=== PATIENT | female | born 1940 | race Two or more races ===

== ENCOUNTER 2023-03-12 06:42 | Day surgery (SDC) | payer BC ==
[2023-03-12] VITALS (12 sets, daily range): BP systolic 120–159; BP diastolic 55–88; PULSE 60–72; RESP 11–20; TEMP 97.8; O2SAT 95–98
[~2023-03-12] VITALS: Ht 170.2 cm; Wt 70.3 kg
[~2023-03-12 06:42] MED LIST: ALEN70TA21 PO; ASCO500T11 PO; ASPI-543 PO; ATOR40TA52 PO; CALCTAB62 OR; CHOL400D2 PO; CRAN500T6 PO; CYAN100042 PO; DISO100C4 PO; ISOS60TA24 PO; LATA0.008 EACHEYE; LISI10TA34 PO; METF-370 PO; OMEP20TA PO; PRE1T PO; TIMO0.5S66 EACHEYE
[2023-03-12] MEDS ORDERED: LIDOCAINE 2%HCL (LOCAL ANESTH.) INJ 20ML MDV ONE (07:43)
[2023-03-12] MEDS ORDERED: IOHEXOL 350 MG/ML 100ML IJ ONE (07:43)
[2023-03-12] MEDS ORDERED: IODIXANOL 320MG/ML 100ML BTL IV ONE ×2 (07:43→08:29)
[2023-03-12] MEDS ORDERED: VERAPAMIL 2.5MG/ML INJ 2ML VIAL IV ONE (07:48)
[2023-03-12] MEDS ORDERED: HEPARIN SODIUM (PORCINE) 5000 UNITS/ML 1ML VIAL ONE (07:48)
[2023-03-12] MEDS ORDERED: ANGIOMAX 250 MG VIAL IV ONE (07:48)
[2023-03-12] MEDS ORDERED: fentaNYL CITRATE 100 MCG/2 ML VL ONE (07:48)
[2023-03-12] MEDS ORDERED: SODIUM CHL 0.9% 50 ML ONE (07:49)
[2023-03-12] MEDS ORDERED: MIDAZOLAM HCL 2MG/2ML 2ml VIAL (1mg/ml) ONE (07:49)
[2023-03-12] MEDS ORDERED: ASPirin 325 MG TAB ONE (08:40)
[2023-03-12] MEDS ORDERED: TICAGRELOR 90 MG TAB ONE (08:40)
[2023-03-12] MEDS ORDERED: SODIUM CHLORIDE 0.9% 600 ML IV ONE (09:45)
== END 2023-03-12 12:57 | disposition home or self-care (01) ==
LOC: CATH 06:42
PROVIDERS: ATTEND Internal Medicine Cardiovascular Disease
DX: I25.10 Atherosclerotic heart disease of native coronary artery without angina pectoris (principal); I42.1 Obstructive hypertrophic cardiomyopathy; I10 Essential (primary) hypertension; R07.9 Chest pain, unspecified; E78.5 Hyperlipidemia, unspecified; J44.9 Chronic obstructive pulmonary disease, unspecified; E11.9 Type 2 diabetes mellitus without complications; Z79.899 Other long term (current) drug therapy; Z79.84 Long term (current) use of oral hypoglycemic drugs
CPT/HCPCS: 93458; C1725; C1769; C1874; C1887; C1894; C9600; J0583; J1644; J2250; J3010; Q9967; 99152

== ENCOUNTER 2023-09-09 21:56 | Inpatient (IN) | payer BC ==
[~2023-09-09] VITALS: Ht 172.7 cm; Wt 80.0 kg
[2023-09-09] MEDS: ASPirin 325 MG TAB PO ONE (22:54)
[2023-09-09 23:00] VITALS: PULSE 137; RESP 19; O2SAT 93
[2023-09-09 23:02] LABS: Basophils # (auto) 0.1 10 ^3/uL (0-0.2); Basophils % (auto) 0.9 % (0.0-2.0); Eosinophils # (auto) 0.1 10 ^3/uL (0-0.8); Eosinophils % (auto) 0.9 % (0.0-7.0); Hematocrit 38.2 % (36.0-46.0); Hemoglobin 12.3 g/dL (12.2-16.2); Lymphocytes # (auto) 2.1 10 ^3/uL (0.4-5.4); Lymphocytes % (auto) 18.5 % (10.0-50.0); Mean Corpuscular Hemoglobin 28.1 pg (28.0-32.0); Mean Corpuscular Hgb Conc. 32.1 g/dL (32.0-36.0); Mean Corpuscular Volume 87.5 fL (80.0-100.0); Monocytes # (auto) 0.8 10 ^3/uL (0-1.3); Monocytes % (auto) 7.3 % (0.0-12.0); Neutrophils # (auto) 8.4 10 ^3/uL (1.6-8.6); Neutrophils % (auto) 72.4 % (37.0-80.0); Nucleated Red Blood Cells % 0.1 %; Red Blood Cells 4.37 10^6/uL (4.0-5.20); Red Cell Distribution Width 15.3 % (11.8-14.3); White Blood Cell 11.6 10^3/uL (4.4-10.8)
[2023-09-09] MEDS: dilTIAZem 25 MG/5 ML VIAL IV ONE (23:02)
[2023-09-09 23:12] LABS: Chloride 107 mmol/L (98-107); Potassium 3.7 mmol/L (3.5-5.1); Sodium 140 mmol/L (136-145)
[2023-09-09 23:13] LABS: Anion Gap 7 (5-15); Calcium 10.5 mg/dL (8.7-10.4); Carbon Dioxide 26 mmol/L (20-30)
[2023-09-09 23:18] LABS: BUN/Creatinine Ratio 15.7 (10.0-20.0); Blood Urea Nitrogen 19 mg/dL (9-23); Glucose 124 mg/dL (74-106)
[2023-09-10] MEDS ORDERED: NITROGLYCERIN 0.4 MG SL TAB SL PRN
[2023-09-10] MEDS ORDERED: MELATONIN 5 MG TAB PO PRN
[2023-09-10] MEDS ORDERED: hydrALAZINE HCL 10 MG TAB PO PRN
[2023-09-10] MEDS ORDERED: ACETAMINOPHEN 325 MG TAB PO PRN
[2023-09-10] MEDS ORDERED: ONDANSETRON HCL 4 MG/2 ML VIAL IV PRN
[2023-09-10] MEDS ORDERED: MORPHINE SULFATE INJ 2 MG/ml SYRG IV PRN
[2023-09-10] MEDS: SODIUM CHLORIDE 0.9% 250 ML IV ONE (00:12)
[2023-09-10] MEDS: ENOXAPARIN SOD 100 MG/1 ML SYRINGE SC ONE (00:12)
[2023-09-10] MEDS: HYDROcodone-ACET 5/325MG TAB PO PRN (02:43)
[2023-09-10 04:35] LABS: Chloride 110 mmol/L (98-107); Potassium 3.8 mmol/L (3.5-5.1); Sodium 142 mmol/L (136-145)
[2023-09-10 04:36] LABS: Anion Gap 7 (5-15); Calcium 9.3 mg/dL (8.5-10.1); Carbon Dioxide 25 mmol/L (20-30)
[2023-09-10 04:41] LABS: Blood Urea Nitrogen 14 mg/dL (9-23); Glucose 103 mg/dL (74-106)
[2023-09-10] MEDS: HEPARIN DRIP/D5W 100UNITS/ML 250 ML IV SCH ×2 (05:45→18:05)
[2023-09-10 06:45] LABS: Basophils # (auto) 0.1 10 ^3/uL (0-0.2); Eosinophils # (auto) 0.1 10 ^3/uL (0-0.8); Eosinophils % (auto) 1.1 % (0.0-7.0); Hematocrit 35.1 % (36.0-46.0); Hemoglobin 11.4 g/dL (12.2-16.2); Lymphocytes # (auto) 2.8 10 ^3/uL (0.4-5.4); Lymphocytes % (auto) 29.6 % (10.0-50.0); Mean Corpuscular Hemoglobin 28.5 pg (28.0-32.0); Mean Corpuscular Hgb Conc. 32.6 g/dL (32.0-36.0); Mean Corpuscular Volume 87.5 fL (80.0-100.0); Monocytes # (auto) 0.7 10 ^3/uL (0-1.3); Monocytes % (auto) 7.4 % (0.0-12.0); Neutrophils # (auto) 5.8 10 ^3/uL (1.6-8.6); Neutrophils % (auto) 60.9 % (37.0-80.0); Nucleated Red Blood Cells % 0.1 %; Red Blood Cells 4.01 10^6/uL (4.0-5.20); Red Cell Distribution Width 15.2 % (11.8-14.3); White Blood Cell 9.6 10^3/uL (4.4-10.8)
[2023-09-10 07:02] LABS: INR 1.02 (0.9-1.15); Partial Thromboplastin Time 30.7 SEC (24.5-34.5); Prothrombin Time 10.7 sec (9.3-11.8)
[2023-09-10 07:03] LABS: Triglycerides 158 mg/dL (< 150)
[2023-09-10 07:04] LABS: LDL Cholesterol 70 mg/dL (< 100)
[2023-09-10 07:05] LABS: Cholesterol 141 mg/dL (< 200); HDL Cholesterol 48 mg/dL (40-59)
[2023-09-10 09:04] VITALS: BP 131/80; PULSE 81; PULSE 82; RESP 17; TEMP 98.3; O2SAT 96; O2SAT 97
[2023-09-10] MEDS: ASPirin 81 mg TAB PO SCH (11:08)
[2023-09-10] MEDS: PANTOPRAZOLE 40 MG/10 ML VIAL INJ IV SCH (11:08)
[2023-09-10] MEDS ORDERED: CLOP75TA28 PO (11:32)
[2023-09-10] MEDS ORDERED: CYA100I PO (11:32)
[2023-09-10] MEDS ORDERED: PRE1T PO (11:32)
[2023-09-10] MEDS ORDERED: CHOL20007 PO (11:32)
[2023-09-10] MEDS ORDERED: AMLO5CAP2 PO (11:32)
[2023-09-10] MEDS ORDERED: RANO500T3 PO (11:32)
[2023-09-10 13:27] VITALS: BP 131/80; PULSE 81; RESP 17; TEMP 98.3; O2SAT 96
[2023-09-10 16:30] VITALS: BP 113/60; PULSE 72; RESP 16; TEMP 98; O2SAT 96
[2023-09-10 17:24] LABS: INR 1.04 (0.9-1.15); Partial Thromboplastin Time 48.4 SEC (24.5-34.5); Prothrombin Time 10.9 sec (9.3-11.8)
[2023-09-10 20:00] VITALS: PULSE 70; RESP 18
[2023-09-10] MEDS: RANOLAZINE ER 500 MG TAB PO SCH (21:43)
[2023-09-10] MEDS: predniSONE 5 MG TAB PO SCH (21:43)
[2023-09-10] MEDS: ATORVASTATIN 20 MG TAB PO SCH (21:44)
[2023-09-10] MEDS: TIMOLOL MAL 0.5% OPTH(EYE) SOL 5ML EACHEYE SCH (21:47)
[2023-09-10 22:00] VITALS: BP 116/76; PULSE 70; RESP 18; TEMP 98.3; O2SAT 96
[2023-09-11] VITALS (7 sets, daily range): BP systolic 105–131; BP diastolic 56–61; PULSE 66–79; RESP 15–18; TEMP 97.6–98.4; O2SAT 94–97
[2023-09-11 01:04] LABS: INR 1.04 (0.9-1.15); Prothrombin Time 10.9 sec (9.3-11.8)
[2023-09-11 01:13] LABS: Partial Thromboplastin Time 82.9 SEC (24.5-34.5)
[2023-09-11 06:54] LABS: Basophils # (auto) 0.1 10 ^3/uL (0-0.2); Eosinophils # (auto) 0 10 ^3/uL (0-0.8); Eosinophils % (auto) 0.7 % (0.0-7.0); Hematocrit 34.3 % (36.0-46.0); Lymphocytes # (auto) 1.4 10 ^3/uL (0.4-5.4); Lymphocytes % (auto) 19.8 % (10.0-50.0); Mean Corpuscular Hemoglobin 28.6 pg (28.0-32.0); Mean Corpuscular Hgb Conc. 32.2 g/dL (32.0-36.0); Mean Corpuscular Volume 88.9 fL (80.0-100.0); Monocytes # (auto) 0.4 10 ^3/uL (0-1.3); Neutrophils % (auto) 71.5 % (37.0-80.0); Red Blood Cells 3.85 10^6/uL (4.0-5.20); Red Cell Distribution Width 15.4 % (11.8-14.3)
[2023-09-11 06:58] LABS: Chloride 108 mmol/L (98-107); Sodium 140 mmol/L (136-145)
[2023-09-11 06:59] LABS: Anion Gap 7 (5-15); Calcium 9.2 mg/dL (8.5-10.1); Carbon Dioxide 25 mmol/L (20-30)
[2023-09-11 07:04] LABS: BUN/Creatinine Ratio 10.1 (10.0-20.0); Blood Urea Nitrogen 10 mg/dL (9-23); Glucose 122 mg/dL (74-106)
[2023-09-11] MEDS: HEPARIN DRIP/D5W 100UNITS/ML 250 ML IV SCH (07:06)
[2023-09-11] MEDS: CLOPIDOGREL BISULFATE 75 MG TAB PO SCH (08:31)
[2023-09-11] MEDS: PANTOPRAZOLE 40 MG TAB PO SCH (08:31)
[2023-09-11] MEDS: DIGOXIN 0.125 MG TAB PO SCH (08:32)
[2023-09-11 08:47] LABS: INR 1.03 (0.9-1.15); Partial Thromboplastin Time 69.5 SEC (24.5-34.5); Prothrombin Time 10.8 sec (9.3-11.8)
[2023-09-11] MEDS ORDERED: ISOSORBIDE MONONITRATE ER 60 MG TAB PO SCH (10:00)
[2023-09-11 14:32] LABS: INR 1.01 (0.9-1.15); Partial Thromboplastin Time 60.4 SEC (24.5-34.5); Prothrombin Time 10.6 sec (9.3-11.8)
[2023-09-11] MEDS: LATANOPROST 0.005 % OPTH(EYE) SOL 2.5ML EACHEYE SCH (21:01)
[2023-09-12] VITALS (11 sets, daily range): BP systolic 100–137; BP diastolic 32–73; PULSE 61–70; RESP 14–20; TEMP 97.8–98.3; O2SAT 92–99
[2023-09-12] MEDS: VERAPAMIL 2.5MG/ML INJ 2ML VIAL IV ONE (07:50)
[2023-09-12] MEDS: fentaNYL CITRATE 100 MCG/2 ML VL ONE ×2 (07:50→10:12)
[2023-09-12] MEDS: ANGIOMAX 250 MG VIAL IV ONE (07:50)
[2023-09-12] MEDS: MIDAZOLAM HCL 2MG/2ML 2ml VIAL (1mg/ml) ONE ×2 (07:51→10:13)
[2023-09-12] MEDS: LIDOCAINE 2%HCL (LOCAL ANESTH.) INJ 20ML MDV ONE ×2 (07:51→10:13)
[2023-09-12] MEDS: HEPARIN IN NS 1000Units/500mL 1,500 ML ONE (07:51)
[2023-09-12] MEDS: SODIUM CHL 0.9% 0 ML ONE (07:51)
[2023-09-12] MEDS: IODIXANOL 320MG/ML 100ML BTL IV ONE ×2 (07:52→08:37)
[2023-09-12] MEDS: IOHEXOL 350 MG/ML 100ML IJ ONE (10:13)
[2023-09-12] MEDS: VANCOMYCIN HCL 1000 MG VL ONE (10:13)
[2023-09-12] MEDS: VANCOMYCIN 1GM/200ML 200 ML IV ONE (10:13)
[2023-09-12] MEDS: ACETAMINOPHEN 325 MG TAB PO ONE (10:15)
[2023-09-12 14:05] LABS: Hematocrit 31.8 % (36.0-46.0); Hemoglobin 10.2 g/dL (12.2-16.2)
[2023-09-12] MEDS: ACETAMINOPHEN 325 MG TAB PO PRN (17:36)
[2023-09-12 23:06] LABS: Urine Bacteria FEW /hpf (None Seen); Urine Blood TRACE /uL (Negative); Urine Clarity Clear (Clear); Urine Color Yellow (Yellow); Urine Hyaline Cast FEW /lpf (0 - 2); Urine Mucus FEW (None Seen); Urine Protein, UAD TRACE (Negative); Urine Specific Gravity 1.049 (1.001-1.035); Urine Urobilinogen Normal (Negative); Urine WBC 51 /hpf (0 - 5); Urine pH 5.5 (5.0-8.0)
[2023-09-13] MEDS: cefTRIAXone 1GM/50ML D5W 50 ML IV SCH (00:16)
[2023-09-13 04:00] VITALS: BP 116/49; PULSE 64; RESP 19; TEMP 98.3; O2SAT 94
[2023-09-13 06:44] LABS: Basophils # (auto) 0 10 ^3/uL (0-0.2); Basophils % (auto) 0.5 % (0.0-2.0); Eosinophils # (auto) 0.1 10 ^3/uL (0-0.8); Eosinophils % (auto) 1.1 % (0.0-7.0); Hematocrit 29.6 % (36.0-46.0); Hemoglobin 9.6 g/dL (12.2-16.2); Lymphocytes # (auto) 1.7 10 ^3/uL (0.4-5.4); Lymphocytes % (auto) 17.7 % (10.0-50.0); Mean Corpuscular Hemoglobin 28.4 pg (28.0-32.0); Mean Corpuscular Hgb Conc. 32.4 g/dL (32.0-36.0); Mean Corpuscular Volume 87.6 fL (80.0-100.0); Monocytes # (auto) 0.7 10 ^3/uL (0-1.3); Neutrophils # (auto) 6.9 10 ^3/uL (1.6-8.6); Neutrophils % (auto) 73.7 % (37.0-80.0); Red Blood Cells 3.38 10^6/uL (4.0-5.20); Red Cell Distribution Width 14.8 % (11.8-14.3); White Blood Cell 9.4 10^3/uL (4.4-10.8)
[2023-09-13 08:00] VITALS: PULSE 64; PULSE 70; RESP 17; O2SAT 97
[2023-09-13 10:03] VITALS: BP 108/59; PULSE 64; RESP 17; TEMP 97.6; O2SAT 97
[2023-09-13] MEDS ORDERED: CEFD300C2 PO (12:55)
[2023-09-13 12:57] VITALS: BP 116/50; PULSE 66; RESP 20; TEMP 98.4; O2SAT 94
[2023-09-13 15:43] VITALS: BP 116/59; PULSE 66; RESP 20; TEMP 98.4; O2SAT 97
== END 2023-09-13 16:30 | disposition home or self-care (01) | DRG 281 ==
LOC: EDBD 21:56 → ER 21:56 → TELE 23:57 → TELE-CENTR 09-10 09:03
PROVIDERS: ADMIT Nurse Practitioner Family; ATTEND Internal Medicine
PROC: 4A023N8 Measurement of Cardiac Sampling and Pressure, Bilateral, Percutaneous Approach (ICD-10-PCS; principal; 2023-09-12)
PROC: B211YZZ Fluoroscopy of Multiple Coronary Arteries using Other Contrast (ICD-10-PCS; 2023-09-12)
PROC: B215YZZ Fluoroscopy of Left Heart using Other Contrast (ICD-10-PCS; 2023-09-12)
PROC: B31NYZZ Fluoroscopy of Other Upper Arteries using Other Contrast (ICD-10-PCS; 2023-09-12)
DX: I48.20 Chronic atrial fibrillation, unspecified (principal); I21.A1 Myocardial infarction type 2; N39.0 Urinary tract infection, site not specified; I34.0 Nonrheumatic mitral (valve) insufficiency; I42.1 Obstructive hypertrophic cardiomyopathy; N18.31 Chronic kidney disease, stage 3a; I25.10 Atherosclerotic heart disease of native coronary artery without angina pectoris; I12.9 Hypertensive chronic kidney disease with stage 1 through stage 4 chronic kidney disease, or unspecified chronic kidney disease; I27.20 Pulmonary hypertension, unspecified; Z95.5 Presence of coronary angioplasty implant and graft; I25.2 Old myocardial infarction; Z82.3 Family history of stroke; Z82.49 Family history of ischemic heart disease and other diseases of the circulatory system; Z79.01 Long term (current) use of anticoagulants
CPT/HCPCS: 36415; 71045; 80048; 80061; 81001; 83036; 83735; 83880; 84484; 85014; 85018; 85025; 85610; 85730; 86850; 86900; 86901; 87086; 93005; 93306; 93460; 97110; 97116; 97163; 99152; 99291; C9113; G0378; J2250; Q9967